=== PATIENT | female | born 1945 | race Caucasian/White ===

== ENCOUNTER 2017-01-31 20:46 | Inpatient (IN) | payer MEDICARE, OTHER ==
[~2017-01-31] VITALS: Ht 162.6 cm; Wt 103.4 kg
[~2017-01-31 20:46] MED LIST: ASCORBIC ACID250 MG PO; ATIVAN0.5 MG; ATIVAN0.5 MG PO; CALCIUM CARBON600 MG PO; CALCIUM MAGNES1 EAC1 PO; CALCIUM600 MG PO; CARVEDILOL25 MG PO; CITRUS CALCIUM +1 EA PO; COZAAR100 MG PO; HYDROCORTISONE TP; INDOMETHACIN25 MG PO; IRON325 M1 PO; LOSARTAN POTASS50 MG PO; MAG-AL LIQUID30 ML PO; NORCO 10-325 T1 EACH PO; NORCO 5-325 TA1 EACH PO; OXYCODONE HCL10 M1 PO; OXYCODONE HCL10 MG PO; OXYCODONE HCL5 MG PO; OXYCONTIN10 MG PO; PHENERGAN25 MG/1 M1 PR; SIMVASTATIN40 MG PO; XARELTO10 MG PO; ZOFRAN8 MG PO
--- NOTE | 2017-01-31 21:40 | NUR ---
PT ARRIVED TO BE THE FLOOR AT 2049. PT AMBULATED SELF INTO ROOM. VERY STEADY ON FEET. ACCOMPANIED HER. PT ALERT AND ORIENTED X4, ORIENTED TO ROOM. IV STARTED, PT TOLERATED WELL. PT FRIENDLY AND COOPERATIVE. VITALS TAKEN. NO NAUSEA. PT VOIDED. PT IN GOWN AND IN BED. CALL LIGHT IN REACH.
--- NOTE | 2017-02-01 00:08 | NUR ---
PT APPEARS TO BE SLEEPING. RR WNL AND UNLABORED.
--- NOTE | 2017-02-01 01:48 | NUR ---
PT USED CALL LIGHT. UP TO BATHROOM TO VOID. BACK TO BED. PT HAS NO FURTHER NEEDS. CALL LIGHT IN REACH.
--- NOTE | 2017-02-01 03:09 | NUR ---
PT APPEARS ASLEEP.
--- NOTE | 2017-02-01 05:19 | NUR ---
PT HAD UNEVENTFUL NIGHT. SLEPT MAJORITY OF SHIFT. PAIN IN ABD ONLY WHEN GETTING UP AND DOWN FROM BED, OTHERWISE PT HAS HAD NO PAIN. NO NAUSEA. PT IS ALERT AND ORIENTED X4, PLEASENT. STANDBY ASSIST. USES CALL LIGHT APPROPRIATLY. SURGERY EARLY AFTERNOON TODAY.
--- NOTE | 2017-02-01 06:42 | NUR ---
PATIENT CALLED WANTS TO USE THE BATHROOM, STANDBY ASSISTED. PATIENT IS NAUSOUS. NURSE NOTIFIED. PATIENT RINSE HER MOUTH. PATIENT IS BACK IN BED. NEVILLE KLEIN WAS WITH PATIENT.
--- NOTE | 2017-02-01 07:42 | EKG ---
[facility] [address] [facility] [place] [address] Signed Normal sinus rhythm Nonspecific T wave abnormality Abnormal ECG No previous ECGs available Confirmed by MIKE PACHECO MD ([id number]) on 02/01/2017 7:41:59 AM Electronically Signed By: MIKE PACHECO MD 02/01/17 0742 PATIENT NAME: LAURENCE BAUER Electrocardiogram DATE OF : 45 PHYSICIAN: MIKE PACHECO MD REPORT #: [id number] REPORT IS CONFIDENTIAL AND NOT TO BE RELEASED WITHOUT AUTHORIZATION
--- NOTE | 2017-02-01 08:08 | NUR ---
patient resting in bed. patient had just got back from the br. patient reports feeling a "little queazy with activity, but it improves when laying in bed". patients bs active. lungs clear. ra. applied scds. vitals taken. morning medication given. patient updated on place of care.
--- NOTE | 2017-02-01 08:47 | NUR ---
PT GOT SICK, GAVE HER AN EMESIS BAG, UNABLE TO THROW UP. LET HER RINSE OUT HER MOUTH WITH WATER AND SHE SPIT IT IN AN EMESIS BUCKET. WASHED HER FACE AND GAVE HER A COMB FOR HER HAIR. NOTIFIED NURSE THAT SHE IS SICK.
--- NOTE | 2017-02-01 09:52 | NUR ---
PATIENT HAD 100MLS OF EMESIS, BUT STATING THAT SHE IS FEELING SLIGHTLY BETTER NOW. REQUESTING TO REST AT THIS TIME. WILL CONTINUE TO MONITOR.
--- NOTE | 2017-02-01 11:05 | NUR ---
UPDATED DR. MILLS ON PATIENTS CONDITION. NO NEW ORDERS AT THIS TIME.
--- NOTE | 2017-02-01 11:30 | HP ---
[facility] [address] [place], [place] [address] Signed ADMISSION DATE: 01/31/2017 REASON FOR ADMISSION: Acute calculous cholecystitis. HISTORY: This 71-year-old white woman is a patient of Dr. Chintan Farmer. I was called by Dr. Farmer late in the day about 6 o'clock noting that the patient was said to have acute cholecystitis. She has been having several weeks of right upper abdominal pain, which have worsened recently. She is not able to eat in her usual way and has persistent pain. Upon evaluation and clinical exam by Dr. Farmer's, was suggestive of cholecystitis. Notably, the patient has a son who is a physician in [place], [place], who organized for the patient to have a CT scan, which was performed today. This confirmed the gallbladder to be normal in appearance, but with gallstones. Given her clinical symptoms of right upper abdominal pain, tenderness noted by Dr. Farmer. Several weeks of problem and gallstones noted on CT scan. She is admitted for acute calculous cholecystitis. Her symptoms of pain are in the right subcostal area, rarely in the back, but occasionally so. She has no associated family history of gallbladder problems that she is aware of. PAST MEDICAL HISTORY: Does include hypertension. Review of her medical record on the EMR includes a note of colonoscopy performed by Dr. Smith in December 2015, which showed 3 small polyps. She is known to have bilateral total knee arthroplasty, hypertension, and hyperlipidemia. SOCIAL HISTORY: She is . Her 's name is Wilder. She lived in [place] for many years. ALLERGIES: She has no known drug allergies. CURRENT MEDICATION: 1. Calcium tablets 600 mg 2 tabs p.o. daily. 2. Carvedilol 25 mg p.o. b.i.d. 3. Losartan 100 mg tablet, 50 mg p.o. b.i.d. 4. Simvastatin 40 mg daily. REVIEW OF SYSTEMS: Denies any shortness of breath or chest pain. She is having no dysphagia or dysuria. Electronically Signed By: JUSTA MILLS MD 02/01/17 1130 PATIENT NAME: LAURENCE BAUER HISTORY AND PHYSICAL DATE OF : 45 PHYSICIAN: JUSTA MILLS MD REPORT #: [id number] REPORT IS CONFIDENTIAL AND NOT TO BE RELEASED WITHOUT AUTHORIZATION [facility] [address] [place], [place] [address] Signed Denies any hematemesis or blood per rectum. Her pain is mostly in the epigastric area on clinical exam at this time. PHYSICAL EXAMINATION: GENERAL: Pleasant white woman who looks to be in no severe distress at this time. HEENT: Mucous membranes are slightly dry. Trachea is midline. CHEST: Clear. HEART: Regular without murmur. ABDOMEN: Flat and obese. There is mild tenderness in right subcostal area. There is no sign of ascites. She does have a truncal obesity. LABORATORY DATA: Show white count of 14.4, hematocrit 34.0, platelets 204,000. Chem profile still pending from admission. I reviewed her CT scan in detail. The CAT scan shows the gallbladder to be reasonably normal. However, she definitely does have several stones, not just one. A good view of all this is on the coronal view. I discussed with her in detail the pathophysiology of biliary disease and recommendation to include cholecystectomy with cholangiogram. The risks of bleeding, infection, bile duct injury, need for open procedure, and so forth were all reviewed in detail. We will ascertain that her lab studies are appropriate, anticipating cholecystectomy preferred by laparoscopic method tomorrow. A full progress conference was held. She will also have written information about cholecystectomy and gallbladder problems. MD REN Wood/MODL /[id number] Electronically Signed By: JUSTA MILLS MD 02/01/17 1130 PATIENT NAME: LAURENCE BAUER HISTORY AND PHYSICAL DATE OF : 45 PHYSICIAN: JUSTA MILLS MD REPORT #: [id number] REPORT IS CONFIDENTIAL AND NOT TO BE RELEASED WITHOUT AUTHORIZATION [facility] [address] [facility] [place], [place] [address] Signed cc: Chintan Farmer MD Electronically Signed By: JUSTA MILLS MD 02/01/17 1130 PATIENT NAME: LAURENCE BAUER HISTORY AND PHYSICAL DATE OF : 45 PHYSICIAN: JUSTA MILLS MD REPORT #: [id number] REPORT IS CONFIDENTIAL AND NOT TO BE RELEASED WITHOUT AUTHORIZATION
--- NOTE | 2017-02-01 11:45 | NUR ---
SURGICAL WIPE DOWN COMPLETE. PREPROCEDURE LIST COMPLETE. PATIENT AWAITING SURGERY TEAM. UPDATED ON PLAN
--- NOTE | 2017-02-01 12:13 | NUR ---
PATIENT WENT TO SURGERY. HEAVENLY FROM SURG TO GET PATIENT.
--- NOTE | 2017-02-01 13:33 | NUR ---
02/01/17 Joy3 Desirae Harley 1319 RESP EVEN AND UNLABORED. ORAL AIRWAY IN PLACE. 1322 PT REPONSIVE, OPENED MONTH AIRWAY REMOVED. PT BACK TO SLEEP. PT PUT IN HIGH FOWLERS TO MAINTAIN AIRWAY. VSS. PT REORIENTED TO PACU.
--- NOTE | 2017-02-01 13:42 | NUR ---
DR. MILLS ROUNDED IN ROOM TO UPDATE THAT PATIENT DID WELL. PLAN TO STAY THE NIGHT. D/C IN THE MORNING
--- NOTE | 2017-02-01 13:56 | NUR ---
PT LAYING IN BED, IN OBVIOUS DISCOMFORT. SHE IS TO HAVE LAP AYANA THIS AFTERNOON. PT REQUESTED PRAYER, AFTER I PLACED VOID BAG NEAR HER. SHE THANKED ME AND WILL FOLLOW.
--- NOTE | 2017-02-01 14:15 | NUR ---
patient back from surgery. assisted to bed. vitals taken. no nausea at this time. edcuated about splinting while coughing.lap sites have small amount of drainage. in room.
--- NOTE | 2017-02-01 14:58 | NUR ---
PATIENT HAS HOB ELEVATED. SATING WELL WITH 2 L OXYGEN VIA NC. PATIENT HAS HAD NO NAUSEA AT THIS TIME. ONLY PAIN WITH COUGH. PATIENT HAS TOLERATED A FEW BITES OF CRACKERS AND JELLO. PATIENT REQUESTING TO REST. PLAN TO TAKE VITALS AT 1530. PATIENT AGREED.
--- NOTE | 2017-02-01 15:58 | NUR ---
PATIENT IS SLEEPING. RR EVEN AND INLABORED. CONTINUE TO SAT WELL ON 2 L VIA NC.
--- NOTE | 2017-02-01 16:16 | NUR ---
PT CONTINUES TO SLEEP. WOKE FOR VITALS. PATIENT REPORTS NO NAUSEA. DROWSY AT THIS TIME. PATIENT REQUESTING TO SLEEP LONGER. AGREED TO SIT UP IN 1 HOUR. CALL LIGHT WITHIN REACH.
--- NOTE | 2017-02-01 16:39 | NUR ---
[facility] PATIENT HAS 5 LAP SITES. CURRENTLY ON 2 L VIA NC. CONT PULSE OX IN PLACE. TAKING SIPS OF WATER AND CRACKERS. GOING SLOW WITH ALL FOODS. HAD ISSUES WITH NAUSEA PREOP. ZOFRAN AND PHENERGAN AVAILABLE. NO NAUSEA POST OP AT THIS TIME. NO PAIN AT THIS TIME. PATIENT HAS BEEN DROWSY SINCE POST OP. DUE TO VOID. PLAN TO DISCHARGE TOMORROW IF TOLERATING FOOD OKAY. REGULAR DIET.
--- NOTE | 2017-02-01 17:18 | NUR ---
PATIENT REPOSITIONED IN THE BED. STATING SMALL AMOUNT OF NAUSEA. TREATED WITH ZOFRAN 4MG. TO MAKE SURE WE STAY AHEAD OF NAUSEA. PATIENT MOVED TO HER SIDE. VITALS TAKEN. PATIENT STATING NO PAIN AT THIS TIME. TAKING BITES OF CRACKER. REFUSING ANY OTHER FOOD ITEM AT THIS TIME. CALL LIGHT WITHIN REACH.
--- NOTE | 2017-02-01 17:58 | NUR ---
RUEL ASSISTED BACK TO BED FROM [facility]. PATIENT UNABLE TO VOID AT THIS TIME. PATIENT NAUSEATED WITH MOVEMENT. DRY HEAVING AT TIMES. EDUCATED ABOUT JUST TAKING SIPS AND NOT STRESSING ON EATING. NO PAIN AT THIS TIME. HOLDING OFF ON ORAL MEDICATION AND ADVANCING DIET. PATIENT ASSISTED BACK TO BED. SLEEPING ON SIDE. SCDS APPLIED. PATIENT AGREED TO ATTEMPT TO VOID AGAIN IN 1 HR.
--- NOTE | 2017-02-01 18:35 | NUR ---
PATIENT CONTINUES TO SLEEP. RR EVEN AND UNLABORED. CONTINUE TO MONITOR. CONT PULSE OX IN PLACE. ICE CHIPS OFFERED AND AT BEDSIDE.
--- NOTE | 2017-02-01 19:20 | NUR ---
pt resting, will reassess and get up to brp/bsc when awake, md to be notified if unable to void
--- NOTE | 2017-02-01 21:24 | NUR ---
UP TO BSC, TOLERATED WELL
--- NOTE | 2017-02-01 21:52 | NUR ---
pt voided 150cc dark yellow urine 150ccm back rto bed, toleratd well, no c/o pain
--- NOTE | 2017-02-01 23:53 | NUR ---
VITALS DONE. I ASKED HER IF SHE COULD TRY AND PEE? SHE SAID SHE HAD NO URGE TO GO. I TOLD HER RN, SHE SAID OK . ASKED PT IF SHE NEEDED ANYTHING ELSE AT THIS TIME? SHE SAID NO. CALL LIGHT AND BEDSIDE TABLE WITHIN REACH.
--- NOTE | 2017-02-02 00:36 | NUR ---
PT UP TO BSC, VOIDED 325CC MEDIUM DARK URINE. BACK TO BED, TOLERATED WELL. NO C/O EMESIS OR PAIN AT THIS TIME. O2 AT 2lN/C, SATS 92%, ABD SS INTACT. DENIES PASSING GAS AT THIS TIME. IVF INFUSING W/O PROBLEMS. SCDS IN PLACE.
--- NOTE | 2017-02-02 02:06 | NUR ---
resting, no s/sx distress or c/o n/v
--- NOTE | 2017-02-02 03:23 | NUR ---
VITALS DONE. PER PT SHE WANTED TO TRY AND USE THE BEDSIDE COMMODE. I HELPED HER GET TO THE SIDE OF THE BED AND ONTO THE COMMODE. AFTER SHE WAS DONE I HELPED HER GET BACK INTO BED. PLUGGED BACK IN HER PULSE OX, SCD'S . GOT SOME PILLOWS FOR HER AND ARRANGED THEM HOW SHE WANTED. ONE BETWEEN HER LEGS AND ONE UNDER HER ARM. EMPTIED THE COMMODE AND CHARTED IT ON THE DOOR. ASKED PT IF SHE WAS COMFORTABLE OR NEEDED ANYTHING ELSE AT THIS TIME? SHE SAID SHE WAS VERY COMFORTABLE AND NEEDED NOTHING ELSE. LEFT HER WITH HER BEDSIDE TABLE AND HER CALL LIGHT WITHIN REACH.
--- NOTE | 2017-02-02 04:43 | NUR ---
PT CURRENTLY IN BED, EYES CLOSED, NO RESP DISTRESS. O2 WEANED DOWN AT 1L/NC, CONT PULSE OX IN PLACE 92-94%. IVF INFUSING W/O PROBLEMS. NO ADVERSE REACTION TO ANCEF ABX. DENIES PASSING FLATUS. ABD 5 SS LAP SITES WITH OLD DRAINAGE. NO C/O ABD PAIN. NO FURTHER C/O DRY HEAVING OR N/V THIS SHIFT. UP TO BSC X2, VOIDED QS. BACK TO BED, SCDS INPLACE. NO REQUESTS
--- NOTE | 2017-02-02 04:49 | NUR ---
AWAKE, NO REQUESTS. HAS BEEN MEDICATED X2 WITH DILAUDID PER C/O ABD PAIN, EFF. MIDLINE ABD DRESSING IN PLACE, DENIES PASSING GAS. F/C PATENT. IVF INFUSING, NO C/O ADVERSE REACTION TO ABX. TOLERATING SIPS OF CLEAR AND ICE AT >250CC/Q8H. WAS INCONTINENT OF BOWEL, SOFT BM. SCDS IN PLACE. PT HELPS WITH TURNING. COOPERATIVE. PT AWARE OF AM LABS TO BE DRAWN.
--- NOTE | 2017-02-02 06:43 | NUR ---
PER PT CALLING WITH CALL LIGHT I HELPED HER TO THE BEDSIDE COMMODE. WAITED IN ROOM UNTIL SHE WAS DONE. I EMPTIED GARBAGES AND CLEANED UP HER ROOM. HELPED HER BACK TO BED AFTER URINATING. PLUGGED IN HER SCD'S, PULSE OX AND COVERED HER UP WITH BLANKEST AND PUT PILLOW WHERE SHE WANTED IT. EMPTIED COMMODE AND CHARTED IT ON THE BOARD. ASKED PT IF SHE NEEDED ANYTHING ELSE? SHE SAID NOT AT THIS TIME. I LEFT HER CALL LIGHT ON HER LAP AND HER BEDSIDE TABLE NEXT TO HER.
--- NOTE | 2017-02-02 09:29 | NUR ---
PATIENT UP TO BSC, STATES " I AM JUST TIRED AND WANT TO GO BACK TO SLEEP". OPENED BLINDS AND DISCUSSED PLANS OF CARE FOR DAY. PATIENT VERBALIZED UNDERSTANDING. ORDERED PATIENT DRY TOAST, JELLO AND TEA FOR BREAKFAST. PATIENT STATES " I AM JUST NOT HUNGRY, AND AFRAID OF GETTING SICK LIKE YESTERDAY". ENCOURAGED PATIENT TAKE IT SLOW THIS MORNING WITH FOOD AND SEE HOW IT GOES.
--- NOTE | 2017-02-02 10:18 | NUR ---
PATIENT UP AT SIDE OF BED EATING DRY TOAST, AND JELLO. APPEARS TO BE TOLERATING WELL. NO COMPLAINTS OF PAIN. BOWEL TONES ACTIVE. CALL LIGHT IN REACH, AT BEDSIDE.
--- NOTE | 2017-02-02 12:48 | NUR ---
PT WELCOMED ME INTO HER RM. SHE HAD A BIG SMILE ON HER FACE, SUPPORTED BY HER AND SON. SURGERY WENT WELL, AND SHE IS FEELING SO MUCH BETTER. SHE HOPES TO BE DC'D TODAY. EXTENDED A BLESSING, WILL FOLLOW NEEDED
--- NOTE | 2017-02-02 13:10 | NUR ---
PATIENT SAID SHE WOULD SHOWER IF SHE ISNT GOING HOME TODAY. WE WALKED ONE LAP AROUND MED SURG. CHANGED BED LINENS. ORDERED HER LUNCH.
--- NOTE | 2017-02-02 14:57 | NUR ---
PATIENT AND I WALKED 2 LAPS AROUND MED SURG. GOT HER A GLASS OF ICE WATER.
--- NOTE | 2017-02-02 15:22 | NUR ---
PATIENT UP AMBULATING, NO COMPLAINTS OF NAUSEA OR PAIN THROUGHOUT DAY. STATES " I HOPE I CAN GO HOME TODAY". EATING WELL AND VOIDING WELL. STERI STRIPS C/D/I. ABDOMEN SOFT.
--- NOTE | 2017-02-02 16:15 | NUR ---
DR. MILLS ROUNDING ON PATIENT, PLANS TO DISCHARGE HOME. FOLLOW UP IN A MONTH. PATIENTS CONCERNS ADDRESSED.
--- NOTE | 2017-02-02 16:17 | OR ---
[facility] [address] [place], [place] [address] Signed DATE OF OPERATION: 02/01/2017 SURGEON: Justa Mills MD PREOPERATIVE DIAGNOSES: 1. Acute calculous cholecystitis. 2. Obesity. POSTOPERATIVE DIAGNOSES: 1. Acute calculous cholecystitis. 2. Obesity. PROCEDURES: 1. Laparoscopic cholecystectomy with intraoperative cholangiogram. 2. Surgeon-directed fluoroscopy. SURGEON: Justa Mills MD ANESTHESIA: General endotracheal (Justa Gallo CRNA). INDICATION: This 71-year-old white woman, is a patient of Dr. Chintan Farmer and has had for the past 2 weeks increasing upper abdominal pain in the right subcostal area with radiation to the back. She has had associated nausea and vomiting. I was called by Dr. Farmer's at the end of the day yesterday regarding this as a CT scan was performed under the direction of her son, who is a physician in [place], [place]. The CT scan showed gallstones in the gallbladder, but no sign of edema or lamination of the wall. Given her clinical findings, I recommended direct admission to the hospital for acute calculous cholecystitis. She has been fluid resuscitated given intravenous antibiotics and parenteral pain medication. She has rather protracted retching and nausea today, which was improved with Decadron. She was admitted at this time to undergo cholecystectomy preferred by laparoscopic approach. She understands the risks of bleeding, infection, bile duct injury, need for open procedure, and of course failure to cure her symptoms. She also understands an open procedure might be required. Understands that she wished to proceed. Electronically Signed By: JUSTA MILLS MD 02/02/17 1617 PATIENT NAME: LAURENCE BAUER OPERATIVE REPORT DATE OF : 45 PHYSICIAN: JUSTA MILLS MD REPORT #: [id number] REPORT IS CONFIDENTIAL AND NOT TO BE RELEASED WITHOUT AUTHORIZATION [facility] [address] [place], [place] [address] Signed FINDINGS: The gallbladder was subacutely inflamed. The liver had fatty infiltration. The gallbladder once excised had four 1 cm rounded dark gallstones. Intraoperative cholangiogram was normal correcting for the fact of some bile leakage around the insertion site of the catheter. There was no sign of filling defect and prompt emptying into the duodenum. There was a small and limited retrograde pancreatogram was noted as well. DESCRIPTION OF PROCEDURE: The patient was brought to the operating room, given a general endotracheal anesthetic. Sequential compression device stockings were used. Heparin subcutaneously administered and preoperative antibiotic Ancef given. The abdomen was prepared with a chlorhexidine solution and draped sterilely. Given her abdominal wall obesity, a supraumbilical incision was made. Using an open Margret cannula technique, pneumoperitoneum was achieved to level 14 mmHg of carbon dioxide gas. Intra-abdominal inspection showed no sign of ascites or carcinomatosis. The omentum was draped over the right lobe of the liver obscuring the gallbladder. Three additional trocars were made in usual configuration in the subxiphoid, right midclavicular, and right anterior axillary line. The gallbladder was elevated cephalad and found to be subacutely inflamed and edematous. Using blunt electrocautery dissection, dissection of the triangle of Calot was undertaken. There was simply too much fatty tissue including omentum to more completely do this and on that basis, an additional 5 mm port was placed and a fan retractor placed allowing for good visualization of the infundibulum and so on. With that better exposure, dissection proceeded without problem. A dominant cystic arterial branch was identified and doubly clipped and divided and ultimately the cystic duct well established in relation to the gallbladder itself. A clip was applied across the gallbladder cystic duct junction and a transverse choledochotomy made in the cystic duct. Retrograde milking of the cystic duct showed egress of clear bile. Using the Browne type cholangiocatheter, intraoperative cholangiography was undertaken showing free flow of contrast in the biliary tree with prompt emptying into the duodenum and a small amount of retrograde filling into the pancreatic duct. There was leakage around the catheter insertion site. The catheter therefore made some contrast spill along the edge of the liver, but change of angulation of the fluoroscope had allowed for good visualization of more proximal common hepatic duct and cystic duct itself. The cystic duct was generous. The catheter was removed and the cystic duct was triply clipped and divided and the gallbladder dissected free in a retrograde fashion using electrocautery. The gallbladder was extracted through the supraumbilical port site, opened on the back table and found to have 4 rounded dark yellow gallstones about 1 cm in size. The mucosa showed no sign of neoplasm. Irrigation was undertaken in subhepatic space. There was no sign of bile leak, bleeding, or other problems. The trocars were Electronically Signed By: JUSTA MILLS MD 02/02/17 4426 PATIENT NAME: LAURENCE BAUER OPERATIVE REPORT DATE OF : 45 PHYSICIAN: JUSTA MILLS MD REPORT #: [id number] REPORT IS CONFIDENTIAL AND NOT TO BE RELEASED WITHOUT AUTHORIZATION [address] [address] Signed removed under direct visualization showing no sign of bleeding. The supraumbilical fascial incision was reapproximated with interrupted 0 Vicryl suture. All wounds were copiously irrigated with saline solution. The skin was closed with interrupted 3-0 Vicryl. Steri-Strips were applied. The patient was ultimately extubated and transferred to recovery in good condition having suffered no complications. Sponge, needle, and instrument counts reported correct x3. MD REN Wood/BREEL /[id number] cc: Chintan Farmer MD Electronically Signed By: JUSTA MILLS MD 02/02/17 1617 PATIENT NAME: LAURENCE BAUER OPERATIVE REPORT DATE OF : 45 PHYSICIAN: JUSTA MILLS MD REPORT #: [id number] REPORT IS CONFIDENTIAL AND NOT TO BE RELEASED WITHOUT AUTHORIZATION
[2017-02-02] MEDS ORDERED: OXYCODON-ACETA1 EAC2 PO (16:19)
--- NOTE | 2017-02-02 16:40 | NUR ---
TOOK OUT IV AND DID VITALS SIGNS. WILL TAKE A SHOWER AT HOME.
--- NOTE | 2017-02-04 11:14 | DS ---
[facility] [address], [place] [address] Signed ADMISSION DATE: 01/31/2017 DISCHARGE DATE: 02/02/2017 REASON FOR ADMISSION: This is a 71-year-old white woman, who is a patient Dr. Chintan Farmer. I was called by Dr. Farmer late in the day at about 6 o'clock, noting that the patient was said to have acute cholecystitis. She has had several weeks of right upper abdominal pain, which have worsened recently. She is really not able to eat in her usual way and has had persistent pain. Clinical examination by Dr. Farmer was suggestive of cholecystitis. Her son-in-law, Dr. Wilks, a physician in Family Practice in [place], [place] organized her to have a CT scan at [facility], which was performed today confirming the gallbladder to have gallstones. Given the particulars of her situation, I recommend direct admission to the hospital for acute calculous cholecystitis for further management and care. PERTINENT PHYSICAL EXAMINATION: GENERAL: Showed a pleasant white woman, who did not look systemically toxic. HEENT: Mucous membranes were slightly dry. NECK: Trachea midline. CHEST: Clear. HEART: Regular without murmur. ABDOMEN: Flat and obese. There is mild tenderness in the right subcostal area. There is no mass. No ascites. LABORATORY DATA: White count was 14.4, hematocrit 34, platelets 204,000. Chem profile abnormal for bilirubin of 1.5, otherwise normal. HOSPITAL COURSE: The patient was fluid resuscitated, given intravenous antibiotics, parenteral pain medication and so on. She did have a fair amount of nausea, which responded largely to Phenergan rather than Zofran. The following day, she underwent laparoscopic cholecystectomy with intraoperative cholangiogram. The gallbladder was found to be subacutely inflamed with edema and so forth. She had at least four 1 cm sized gallstones. Cholangiogram was normal. Her postoperative course was marked by no further nausea and marked improvement. By the time of discharge, she is ambulating well, tolerating a regular diet. Incisions are clean and dry and she is doing well. Electronically Signed By: JUSTA MILLS MD 02/04/17 1114 PATIENT NAME: LAURENCE BAURE DISCHARGE SUMMARY DATE OF : 45 PHYSICIAN: JUSTA MILLS MD REPORT #: [id number] REPORT IS CONFIDENTIAL AND NOT TO BE RELEASED WITHOUT AUTHORIZATION [facility] [address] [place] [id number] Signed It is planned that she will see me back in approximately a month following discharge. DISCHARGE INSTRUCTIONS: Include no lifting greater than 20 pounds for the next 2 weeks. She will keep Steri-Strips on and is permitted to shower tomorrow. DISCHARGE MEDICATIONS: Will include, Percocet 7.5/325 mg 1 to 2 p.o. q.4 hours p.r.n. pain. Additionally, she is to resume her usual medication of: 1. Carvedilol 25 mg p.o. b.i.d. 2. Simvastatin 40 mg p.o. daily. 3. Calcium carbonate 1250 mg p.o. daily. 4. Cozaar (losartan) 100 mg tablet, 50 mg p.o. b.i.d. 5. Additionally, she is encouraged to take Tylenol plain 650 mg p.o. q.6 hours p.r.n. pain or Motrin 600 mg p.o. q.6 hours p.r.n. pain. DISCHARGE DIAGNOSES: 1. Acute calculous cholecystitis. 2. Obesity. 3. Hypertension. 4. Status post laparoscopic cholecystectomy with intraoperative cholangiogram, February 01, 2017. MD REN Wood/MODL /[id number] cc: Ryan Wilks DO Electronically Signed By: JUSTA MILLS MD 02/04/17 1114 PATIENT NAME: LAURENCE BAUER DISCHARGE SUMMARY DATE OF : 45 PHYSICIAN: JUSTA MILLS MD REPORT #: [id number] REPORT IS CONFIDENTIAL AND NOT TO BE RELEASED WITHOUT AUTHORIZATION [facility] [address] [place] [address] [place] [address] Signed Chintan Farmer MD Electronically Signed By: JUSTA MILLS MD 02/04/17 1114 PATIENT NAME: LAURENCE BAUER DISCHARGE SUMMARY DATE OF : 45 PHYSICIAN: JUSTA MILLS MD REPORT #: [id number] REPORT IS CONFIDENTIAL AND NOT TO BE RELEASED WITHOUT AUTHORIZATION
== END 2017-02-02 17:10 | disposition home or self-care (01) | DRG 419 ==
LOC: MS 20:46
PROVIDERS: ADMIT Surgery
PROC: 0FT44ZZ Resection of Gallbladder, Percutaneous Endoscopic Approach (ICD-10-PCS; principal; 2017-02-01 13:00)
PROC: BF10YZZ Fluoroscopy of Bile Ducts using Other Contrast (ICD-10-PCS; principal; 2017-02-01 13:00)
DX: K80.12 Calculus of gallbladder with acute and chronic cholecystitis without obstruction (principal); E66.01 Morbid (severe) obesity due to excess calories; I10 Essential (primary) hypertension
CPT/HCPCS: 00790; 36415; 74300; 80053; 82150; 82247; 82465; 83615; 84100; 84478; 84550; 85025; 88304; 93005; 93010; 94760; 94762; J0330; J0461; J0690; J1100; J1644; J1885; J2250; J2405; J2550; J2704; J2765; J3010; J7120; Q9967

== ENCOUNTER 2017-06-26 18:41 | Emergency (ER) | payer MEDICARE, OTHER ==
[~2017-06-26] VITALS: Ht 162.6 cm; Wt 99.8 kg
[~2017-06-26 18:41] MED LIST changes: +OXYCODON-ACETA1 EAC2 PO
[2017-06-26] MEDS ORDERED: ZOFRAN ODT4 MG PO (21:47)
[2017-06-27] MEDS ORDERED: ZOFRAN ODT4 MG PO (20:00)
== END 2017-06-26 22:06 | disposition home or self-care (01) ==
LOC: ED 18:41
DX: A08.4 Viral intestinal infection, unspecified (principal); R91.8 Other nonspecific abnormal finding of lung field; R79.89 Other specified abnormal findings of blood chemistry; I10 Essential (primary) hypertension; E78.00 Pure hypercholesterolemia, unspecified; Z79.899 Other long term (current) drug therapy
CPT/HCPCS: 71046; 76705; 80053; 81001; 83605; 85025; 87040; 96361; 96374; 99284; J2405; J7030; J7040

== ENCOUNTER 2017-06-27 19:30 | Inpatient (IN) | payer MEDICARE, OTHER ==
[~2017-06-27] VITALS: Ht 162.6 cm; Wt 111.4 kg
[~2017-06-27 19:30] MED LIST changes: +ZOFRAN ODT4 MG PO
[2017-06-27] MEDS ORDERED: ZOFRAN ODT4 MG PO (20:00)
--- NOTE | 2017-06-27 23:26 | EKG ---
[facility] [address] [facility] [place] [address] Signed Normal sinus rhythm Possible Left atrial enlargement Borderline ECG When compared with ECG of 01-FEB-2017 02:00, No significant change was found Confirmed by GWEN HUNT MD ([id number]) on 06/27/2017 11:26:13 PM Electronically Signed By: GWEN HUNT MD 06/27/17 2326 PATIENT NAME: LIZETTELAURENCE Electrocardiogram DATE OF : 45 PHYSICIAN: GWEN HUNT MD REPORT #: [id number] REPORT IS CONFIDENTIAL AND NOT TO BE RELEASED WITHOUT AUTHORIZATION
--- NOTE | 2017-06-28 01:39 | NUR ---
IN ROOM TO ASSESS PT AND HELPED HER TO THE RESTROOM. ADVISED PT WE NEED A SPUTUM SAMPLE IF HER COUGH BECOMES PRODUCTIVE AND LEFT A SAMPLE CUP. PT STATES SHE HAS NO PAIN AT THIS TIME, JUST SOME WEAKNESS. SHE DENIES NEEDS AT THIS TIME. CALL LIGHT IS WITHIN REACH.
--- NOTE | 2017-06-28 03:15 | NUR ---
PT IS RESTING WITH EYES CLOSED, RESPIRATIONS ARE EVEN AND NONLABORED. CALL LIGHT IS WITHIN REACH.
--- NOTE | 2017-06-28 04:45 | NUR ---
PT IS RESTING WITH EYES CLOSED, RESPIRATIONS ARE EVEN AND NONLABORED. CALL LIGHT IS WITHIN REACH.
--- NOTE | 2017-06-28 05:25 | NUR ---
PT WAS ADMITED A LITTLE BEFORE MIDNIGHT LAST NIGHT, SHE HAS BEEN AFEBRILE WHILE ON [facility]. SHE RECIEVED 1L BOLUS OF IV FLUIDS AND HAS DSLR INFUSING AT 125MLS/HR. SHE IS VOIDING QS. HER LUNGS ARE CLEAR AND SHE HAS A NONPRODUCTIVE COUGH. SHE IS A SBA TO THE RESTROOM.
--- NOTE | 2017-06-28 09:23 | NUR ---
PATIENT RESTING ON SIDE. PATIENT TEMP ELEVATED. PO TYLENOL GIVEN. PATIENT STATING NO PAIN. LIGHT BLANKET GIVEN TO PATIENT. PATIENT HAS CONSISTANT DRY COUGH. PATIENT HAS HAD LOOSE STOOL. PATIENT STATING SHE HAS BEEN HAVING LOOSE STOOL AT HOME. HAT PLACED IN TOILET TO COLLECT. PATIENT LUNGS ARE CLEAR. DIMINISHED IN THE BASES. NO OTHER COMPLAINT AT THIS TIME. ENCOURAGED PO. PATIENT HAS POOR APPETITE, BUT TRYING TO DRINK BROTH AND SPRITE
--- NOTE | 2017-06-28 10:47 | NUR ---
OT IN ROOM WORKING WITH PATIENT. PATIENT TOLERATING ACTIVITY OKAY. VITALS TAKEN. I AND O DONE. PATIENT GOING TO SIT UP WITH OT IN ROOM.
--- NOTE | 2017-06-28 10:50 | NUR ---
PATIENT TOLERATING SIPS OF CLEAR. NO NAUSEA AT THIS TIME. TEMP IMPROVING WITH TYLENOL.
--- NOTE | 2017-06-28 11:13 | NUR ---
RECHECKED ORAL TEMP. PATIENT TEMP IMPROVED. FAMILY AT BEDSIDE.
--- NOTE | 2017-06-28 11:32 | NUR ---
ROUNDED WITH DR. HUNT IN ROOM. NEW ORDER FOR STOOL SAMPLE AND ENCOURAGE PO.
--- NOTE | 2017-06-28 14:17 | NUR ---
PATIENT SLEEPING ON HER BACK. RR ARE EVEN AND UNLABORED. CALL LIGHT WITHIN REACH
--- NOTE | 2017-06-28 14:43 | NUR ---
PT CALLED TO USE BR. TOLERATING TRANSFERING IN ROOM. TOLERATING WELL.
--- NOTE | 2017-06-28 14:57 | NUR ---
PATIENT CONTINUE TO HAVE LOOSE STOOL. PLACED ON ISOLATION UNTIL CONFIRMED NEGATIVE STOOL. PATIENT UPDATED WITH INFORMATION. PATIENT STATING NO PAIN. NO FEVER AT THIS TIME. ENCOURAGED FLUIDS. POPCILE BROUGHT INTO ROOM FOR PATIENT.
--- NOTE | 2017-06-28 16:27 | NUR ---
TYLENOL GIVEN. PATIENT STATING STARTING TO HAVE JONES AND CHILL. TEMP 99.1
--- NOTE | 2017-06-28 17:22 | NUR ---
LAB IN ROOM TO DRAW BLOOD CULTURES
--- NOTE | 2017-06-28 17:44 | NUR ---
Medications reconciled with pharmacy records and patient interview
--- NOTE | 2017-06-28 18:23 | NUR ---
PATIENT REQUESTING MASH POTATOES FOR DINNER. ENCOURAGING PO. PATIENT CONTINUES TO HAVE POOR APPETITE. TOLERATED DINNER TONIGHT
--- NOTE | 2017-06-28 20:24 | NUR ---
ROUNDED CHARGE. PATIENT ASSISTED TO THE RESTROOM. PATIENT WAS ABLE TO VOID. PATIENT IS BACK IN BED RESTING NO NEEDS NOTED. ICE WATER REFRESHED. PATIENT DENIES ANY NEEDS. CALL LIGHT IN REACH.
--- NOTE | 2017-06-28 22:12 | NUR ---
up to brp, voided and had liquid brown colored stool. back to bed, tolerated well, 1 sba. temp down to 98.7, had tylenol 500mg po earlier for temp
--- NOTE | 2017-06-29 00:21 | NUR ---
up to brp, voided and had another small liquid bm, back to bed, tolerated well, 1 SBA, continues on Contact precautions until C-Diff results back. no c/o pain or n/v,
--- NOTE | 2017-06-29 02:43 | NUR ---
UP TO BRP, HAD SMALL LIQUID BROWN BM, VOIDED CLEAR YELLOW URINE, BACK TO BED
--- NOTE | 2017-06-29 04:23 | NUR ---
Up to brp, voided, back to bed. Tolerated well, continues to have dry, hacky, non productive cough. No c/o pain or requests. Continues on Contant isolation
--- NOTE | 2017-06-29 06:40 | NUR ---
Up to brp, voided and had small liquid bm, brown colore. Pt requires one person assist, continues to have dry, nonproductive cough. Aware of need for sputum culture, stated understanding
--- NOTE | 2017-06-29 07:47 | NUR ---
Patient up to bathroom, voided and had a liquid stool. Continous fluids changed to left arm.
--- NOTE | 2017-06-29 08:35 | NUR ---
Patient up to bathroom voided, no stool. One person assit. Still apears to have a non productive cough
--- NOTE | 2017-06-29 08:49 | NUR ---
Patient was given warm blanket and wipes. Asked about bath/shower, patient said she would think about one later.
--- NOTE | 2017-06-29 10:23 | NUR ---
Patient's lung sounds were clear and equal bilaterl still has a nonproductive cough Heart sounds were equal, with no gallops or mumors. Skin is slighlty moist, patient did not appear to have sores or skin breakdown. There was no edema presnt and cap refill was >3. Bowel tones were active in all four quadrents. Denies any pain. Patient is able to move with one person assist. Call light was left next to patient.
--- NOTE | 2017-06-29 10:35 | NUR ---
Patient requested a snack, jello was provided. Call light was left within reach.
--- NOTE | 2017-06-29 13:56 | NUR ---
This is a late entry for 1230: Patients lungs were clear and equal bilateral. Heart sounds were equal with no murmurs gallops rubs. Back was irritated, lotion was provided and switched side to lie on. Patient denies having any pain. Bowel tones were active in all four quadrants. Patient is still on one person assist. No edema was noted.
--- NOTE | 2017-06-29 15:26 | NUR ---
Patient was given a shower, bed redone with clean sheets. Hair was blow dried and patient brushed their teeth. Patient denied any pain and denies need anything else at this time.Call light was left next to patient.
--- NOTE | 2017-06-29 18:10 | NUR ---
PATIENT REPORTS " I AM FEELING MUCH BETTER TODAY" NO LONGER ON ISOLATION PERCAUTIONS, C-DIF NEGATIVE. NO COMPLAINTS OF PAIN THROUGHOUT DAY, UP WITH PHYSICAL THERAPY. AFERBILE THROUGHOUT DAY. SHOWERED. PLAN FOR PATIENT TO DISCHARGE WHEN REAGAIN STRENGTH AND CONTINUES TO BE AFEBRILE 24 HOURS. SL WHEN IV BAG EMPTY.
--- NOTE | 2017-06-29 20:00 | NUR ---
RECEIVED REPORT AT 1900, FOUND PT IN BED ON THE PHONE. PT OVERALL LOOKED MORE ALERT THAN LAST NIGHT.
--- NOTE | 2017-06-29 22:00 | NUR ---
V/S ARE WDL, ALL LOBES ARE CLEAR, PT SO FAR IS AFREBRILE. OUTPUT IS ADEQUATE, ABD SOUNDS ARE PRESENT. PT IS STRONGER PHYSICALLY TODAY AND MORE ALERT. NO NEW CONCERNS AT THIS TIME. PT IS ON RA.
--- NOTE | 2017-06-30 | NUR ---
PT IS SLEEPING AT THIS TIME.
--- NOTE | 2017-06-30 01:46 | NUR ---
HELPED PT TO THE BATHROOM AND BACK TO BED. BEDSIDE TABLE AND CALL LIGHT WITHIN REACH. FRESH ICE WATER GIVEN. PT NEEDS NOTHING MORE AT THIS TIME.
--- NOTE | 2017-06-30 02:00 | NUR ---
PT AT THIS TIME IS SLEEPING.
--- NOTE | 2017-06-30 03:15 | NUR ---
ASSISTED PT TO BATHROOM. PRN TESSALON PEARLS 200MG WAS GIVEN. ALL LOBES ARE CLEAR, TEMP IS 98.4. PT DENIES PAIN AND SOB. PT IS WALKING WELL. NO NEW CONCERNS AT THIS TIME.
--- NOTE | 2017-06-30 04:00 | NUR ---
PT IS AWAKE IN BED AND STILL COUGHING OCCASIONALLY.
--- NOTE | 2017-06-30 05:14 | NUR ---
PT OVERALL HAD AN UNEVENTFUL NIGHT. ALL LOBES WERE CLEAR THIS SHIFT. PT NEEDED PRN TESSALON PEARLS 200MG X1. PT HAS REMAINED AFEBRILE ALL SHIFT SO FAR. PT IS SL AT THIS TIME. PT IS PHYSICALLY STRONGER THAN LAST NIGHT AND MUCH MORE ALERT. NON NEW CONCERNS AT THIS TIME.
--- NOTE | 2017-06-30 06:35 | NUR ---
VITALS AND I&OS DONE AND CHARTED. FRESH WATER GIVEN. BEDSIDE TABLE AND CALL LIGHT WITHIN REACH. PT NEEDS NOTHING ELSE AT THIS TIME.
[2017-06-30] MEDS ORDERED: BENZONATATE100 MG PO (10:00)
[2017-06-30] MEDS ORDERED: CEFPODOXIME PR200 MG PO (10:00)
[2017-06-30] MEDS ORDERED: CULTURELLE1 EAC1 PO (10:00)
[2017-06-30] MEDS ORDERED: LOPERAMIDE2 MG PO (10:01)
--- NOTE | 2017-06-30 10:18 | NUR ---
ROUNDED WITH DR. HUNT, PLAN TO DISCHARGE HOME. PATIENT VERBALIZES UNDERSTANDING. DISCUSSED PLAN WITH . ANSWERED QUESTIONS AND CONCERNS. STUDENT NURSE REMOVING IV FROM HAND, AND ASSISTING WITH PATIENT GETTING DRESSED.
--- NOTE | 2017-06-30 10:19 | NUR ---
PATIENTS IV WAS DISCONTINUED, IV WAS INTACT, PATIENT DIDNT EXPRESS ANY PAIN. LUNG SOUNDS WERE CLEAR AND EQUAL BILATERAL, HEART SOUNDS WERE REGULAR WITH NO MURMURS OR GALLOPS. NO EDEMA WAS NOTED. PROVIDED PATIENT WITH SOME LOTION AND ASSISTED IN APPLYING IT. PATIENT DID NOT EXPRESS ANY CONCERNS WITH GOING HOME AND HAD NO QUESTIONS AT THE MOMENT.
--- NOTE | 2017-06-30 10:35 | NUR ---
THIS IS A LATE ENTRY FOR 8:45: ASSITED PATIENT TO BATHROOM, PATIENT WAS ABLE TO WALK AND WIPE ON HER OWN. PATIENT REPORTED FEELING BETTER THAN YESTERDAY, WAS ABLE TO GET MORE REST IN.LUNG SOUNDS WERE CLEAR AND EQUAL BILATERAL. HEART SOUNDS WERE REGULAR WITHOUT ANY GALLOPS OR MURMURS. NO EDEMA NOTED. PATIETNT REQUIRED NO FURTHER ASSITANCE AT THE MOMENT.
--- NOTE | 2017-06-30 14:30 | NUR ---
VISITED WITH , HE SHOOK MY HAND AND STATED "WE ARE GOING HOME". HE ALSO MENTIONED THAT HIS CANCER IS IN REMISSION-SO IT IS A GOOD DAY FOR THEM. GOD BLESS THEM BOTH
== END 2017-06-30 11:15 | disposition home or self-care (01) | DRG 195 ==
LOC: ED 19:30 → MS 22:41
PROVIDERS: ADMIT Internal Medicine
DX: J13 Pneumonia due to Streptococcus pneumoniae (principal); J18.8 Other pneumonia, unspecified organism; R19.7 Diarrhea, unspecified; M62.81 Muscle weakness (generalized); I10 Essential (primary) hypertension; E78.5 Hyperlipidemia, unspecified; Z79.899 Other long term (current) drug therapy
CPT/HCPCS: 36415; 71046; 74177; 80053; 81001; 83605; 83690; 83735; 85025; 87040; 87045; 87046; 87205; 87449; 87493; 87899; 93005; 93010; 94667; 94668; 97116; 97161; J0456; J0696; J1650; J7030; J7120; Q9967